=== PATIENT | female | born 1935 | race Caucasian/White ===

== ENCOUNTER → 2017-07-27 | Outpatient (REF) | payer MEDICARE ==
[~2017-07-27] MED LIST: *PREMTA OR; /BENA20TA; /CELE20CA OR; /FEXO18TA; ACET500C PO; ACET65TA; ALAWAY OU; ALLE25CA OR; CALCCHW12 PO; CLOTRIMAZOLE CREAM TOP; DRAMAMINE PO; FLON0.05; HYDR25TA6 OR; LOTREL PO; NORV5TAB; OSTEOBIFLEX PO; POTA99TA OR; PRIL20CA PO; REQU2TAB3 PO; THERGRAN PO; TRAM50TA2; TRAM50TA2 OR
[2017-07-27 13:02] LABS: MEAN CORPUSCULAR HGB CONC 32.6 g/dl (32.0-36.5); MEAN CORPUSCULAR VOLUME 98.2 fl (80.0-96.0); RED CELL DISTRIBUTION WIDTH 12.7 % (11.5-14.5); WHITE BLOOD COUNT 8.2 10^3/uL (4.0-10.0)
[2017-07-27 15:45] LABS: ALBUMIN 3.3 GM/DL (3.2-5.2); ALBUMIN/GLOBULIN RATIO 1.06 (1.00-1.93); BILIRUBIN,TOTAL 0.5 MG/DL (0.2-1.0); CALCIUM LEVEL 8.5 MG/DL (8.8-10.2); CREATININE FOR GFR 1.16 MG/DL (0.55-1.02); FREE T4 1.07 NG/DL (0.76-1.46); GLOMERULAR FILTRATION RATE 47.4 (>32); POTASSIUM SERUM 4.4 MEQ/L (3.5-5.1); TOTAL PROTEIN 6.4 GM/DL (6.4-8.2)
== END ==
LOC: M SFHCLERA 10:01
PROVIDERS: ATTEND Family Medicine
DX: Z00.00 Encounter for general adult medical examination without abnormal findings (principal); I10 Essential (primary) hypertension; M19.90 Unspecified osteoarthritis, unspecified site; Z79.899 Other long term (current) drug therapy

== ENCOUNTER → 2018-01-05 | Outpatient (REF) | payer MEDICARE ==
[2018-01-05 12:23] LABS: ANION GAP 8 MEQ/L (8-16); BLOOD UREA NITROGEN 23 MG/DL (7-18); CARBON DIOXIDE LEVEL 26 MEQ/L (21-32); CHLORIDE LEVEL 105 MEQ/L (98-107); CREATININE FOR GFR 1.18 MG/DL (0.55-1.30); GLOMERULAR FILTRATION RATE 46.5 (>32); GLUCOSE, FASTING 89 MG/DL (70-100); POTASSIUM SERUM 4.7 MEQ/L (3.5-5.1); SODIUM LEVEL 139 MEQ/L (136-145)
== END ==
LOC: M SFHCLERA 09:19
DX: N18.9 Chronic kidney disease, unspecified (principal)
CPT/HCPCS: 80048

== ENCOUNTER 2018-05-25 09:31 | Inpatient (IN) | payer MEDICARE ==
[2018-05-25] MEDS: NS 500 ML IV (10:00)
[2018-05-25] MEDS: ONDANSETRON 4MG/2ML VIAL (J2405) IV ×2 (10:00→10:22)
[2018-05-25 10:05] LABS: BASO % 0.4 % (0.0-1.0); EOS # 0.3 10^3/uL (0.0-0.50); EOS % 4.6 % (0.0-3.0); HEMATOCRIT 38.5 % (36.0-47.0); HEMOGLOBIN 12.8 g/dl (12.0-15.5); IMMATURE GRANULOCYTE % 0.1 % (0-3.0); LYMPH # 2.1 10^3/uL (1.5-4.5); MEAN CORPUSCULAR HEMOGLOBIN 32.2 pg (27.0-33.0); MEAN CORPUSCULAR HGB CONC 33.2 g/dl (32.0-36.5); MONO # 0.9 10^3/uL (0.0-0.8); MONO % 12.6 % (0.0-5.0); NEUTROPHILS # 3.5 10^3/uL (1.8-7.7); NEUTROPHILS % 51.3 % (36.0-66.0); PLATELET COUNT, AUTOMATED 229 10^3/uL (150-450); RED BLOOD COUNT 3.97 10^6/uL (4.00-5.40); RED CELL DISTRIBUTION WIDTH 12.8 % (11.5-14.5); WHITE BLOOD COUNT 6.9 10^3/uL (4.0-10.0)
[2018-05-25 10:28] LABS: ALBUMIN 3.5 GM/DL (3.2-5.2); ALKALINE PHOSPHATASE 77 U/L (45-117); ALT/SGPT 19 U/L (12-78); ANION GAP 9 MEQ/L (8-16); AST/SGOT 34 U/L (7-37); BILIRUBIN,DIRECT 0.2 MG/DL (0.0-0.2); BILIRUBIN,TOTAL 0.6 MG/DL (0.2-1.0); BLOOD UREA NITROGEN 22 MG/DL (7-18); CARBON DIOXIDE LEVEL 27 MEQ/L (21-32); CHLORIDE LEVEL 105 MEQ/L (98-107); CK-MB VALUE MASS 1.7 NG/ML (<3.6); CPK CREATINE PHOSPHOKINASE 96 U/L (26-192); CREATININE FOR GFR 1.38 MG/DL (0.55-1.30); GLOMERULAR FILTRATION RATE 38.7 (>32); GLUCOSE, FASTING 94 MG/DL (70-100); LIPASE 201 U/L (73-393); MB/CK RELATIVE INDEX 1.77 (< OR =4); POTASSIUM SERUM 3.7 MEQ/L (3.5-5.1); SODIUM LEVEL 141 MEQ/L (136-145); TOTAL PROTEIN 7.4 GM/DL (6.4-8.2); TROPONIN I < 0.02 NG/ML (< 0.10)
[2018-05-25 10:51] LABS: INR 0.97
[2018-05-25 10:52] LABS: LACTIC ACID SEPSIS PROTOCOL 1.9 MMOL/L (0.4-2.0)
[2018-05-25] MEDS ORDERED: ISOVUE-370 76% 100ML VIAL (Q9967) As Ordered (11:28)
[2018-05-25] MEDS: fentaNYL 100 MCG/2 ML INJECTION (J3010) IV (12:02)
[2018-05-25] MEDS: ACETAMINOPHEN TAB 650MG DOSE (2X325MG) PO (12:02)
[2018-05-25 12:07] LABS: KETONE, URINE AUTO RFX NEGATIVE (NEGATIVE); NITRITE, URINE AUTO RFX NEGATIVE (NEGATIVE); RBC, URINE AUTO RFX 2 /HPF (0-3); SPECIFIC GRAVITY UR AUTO RFX 1.008 (1.002-1.035); SQUAM EPITHELIAL CELL UR AURFX 1 /HPF (0-6); WBC, URINE AUTO RFX 5 /HPF (0-3)
[2018-05-25 12:13] LABS: LEUKOCYTE ESTERASE UR AUTO RFX 1+ (NEGATIVE)
[2018-05-25] MEDS: NS 1,000 ML IV (15:15)
[2018-05-25] MEDS: GABAPENTIN 100 MG CAP PO ×2 (16:00→20:01)
[2018-05-25] MEDS: MIRALAX *UNIT DOSE* 17GM PACKET PO (19:00)
[2018-05-25] MEDS: traMADol 50 MG TAB PO (20:01)
[2018-05-25] MEDS: cefTRIAXone SOD 1 GM in D5W MINI-BAG PLUS 50 ML IV (20:01)
[2018-05-25] MEDS: HEPARIN SOD (PORCINE) 5000 UNITS/ML VIAL SC (20:01)
[2018-05-25] MEDS: TAMSULOSIN 0.4 MG CAP PO (20:02)
[2018-05-25] MEDS: SENOKOT S TAB PO (20:02)
[2018-05-25] MEDS: rOPINIRole 2MG TAB PO (20:02)
[2018-05-25] MEDS: amLODIPine 5 MG TAB PO (20:06)
[2018-05-25 20:26] LABS: CK-MB VALUE MASS 1.8 NG/ML (<3.6); CPK CREATINE PHOSPHOKINASE 122 U/L (26-192); MB/CK RELATIVE INDEX 1.47 (< OR =4); TROPONIN I < 0.02 NG/ML (< 0.10)
[2018-05-26] MEDS: KETOROLAC TROMETHAMINE 10 MG TAB PO (02:30)
[2018-05-26 06:15] LABS: HEMATOCRIT 36.9 % (36.0-47.0); HEMOGLOBIN 12.1 g/dl (12.0-15.5); MEAN CORPUSCULAR HGB CONC 32.8 g/dl (32.0-36.5); MEAN CORPUSCULAR VOLUME 97.6 fl (80.0-96.0); PLATELET COUNT, AUTOMATED 184 10^3/uL (150-450); RED BLOOD COUNT 3.78 10^6/uL (4.00-5.40); RED CELL DISTRIBUTION WIDTH 12.9 % (11.5-14.5); WHITE BLOOD COUNT 4.8 10^3/uL (4.0-10.0)
[2018-05-26 06:41] LABS: ALBUMIN 3.1 GM/DL (3.2-5.2); ANION GAP 8 MEQ/L (8-16); BLOOD UREA NITROGEN 19 MG/DL (7-18); C REACTIVE PROTEIN QUANTITATIV < 0.30 MG/DL (0.00-0.30); CALCIUM LEVEL 8.8 MG/DL (8.8-10.2); CARBON DIOXIDE LEVEL 27 MEQ/L (21-32); CHLORIDE LEVEL 109 MEQ/L (98-107); CREATININE FOR GFR 1.18 MG/DL (0.55-1.30); GLOMERULAR FILTRATION RATE 46.3 (>32); GLUCOSE, FASTING 101 MG/DL (70-100); PHOSPHORUS LEVEL 4.3 MG/DL (2.5-4.9); POTASSIUM SERUM 4.6 MEQ/L (3.5-5.1); SODIUM LEVEL 144 MEQ/L (136-145)
[2018-05-26] MEDS: MAGNESIUM CITRATE 300 ML BTL PO ×2 (07:07→17:54)
[2018-05-26] MEDS: ONDANSETRON 4MG/2ML VIAL (J2405) IV (07:28)
[2018-05-26] MEDS: MIRALAX *UNIT DOSE* 17GM PACKET PO (09:00)
[2018-05-26] MEDS: ACETAMINOPHEN TAB 650MG DOSE (2X325MG) PO ×2 (09:17→20:25)
[2018-05-26] MEDS: SENOKOT S TAB PO ×2 (09:17→20:25)
[2018-05-26] MEDS: amLODIPine 5 MG TAB PO (09:17)
[2018-05-26] MEDS: HEPARIN SOD (PORCINE) 5000 UNITS/ML VIAL SC ×2 (09:18→20:24)
[2018-05-26] MEDS: GABAPENTIN 100 MG CAP PO ×3 (09:18→20:25)
[2018-05-26] MEDS: MULTIVITAMINS/MINERALS THERAP 1 TAB PO (09:18)
[2018-05-26] MEDS: traMADol 50 MG TAB PO (14:10)
[2018-05-26] MEDS: cefTRIAXone SOD 1 GM in D5W MINI-BAG PLUS 50 ML IV (17:54)
[2018-05-26] MEDS: rOPINIRole 2MG TAB PO (20:24)
[2018-05-26] MEDS: TAMSULOSIN 0.4 MG CAP PO (20:25)
[2018-05-27] MEDS: traMADol 50 MG TAB PO ×3 (05:48→21:47)
[2018-05-27 07:13] LABS: HEMATOCRIT 37.6 % (36.0-47.0); HEMOGLOBIN 12.4 g/dl (12.0-15.5); MEAN CORPUSCULAR VOLUME 96.9 fl (80.0-96.0); PLATELET COUNT, AUTOMATED 179 10^3/uL (150-450); RED BLOOD COUNT 3.88 10^6/uL (4.00-5.40); WHITE BLOOD COUNT 4.9 10^3/uL (4.0-10.0)
[2018-05-27 07:29] LABS: ALBUMIN 3.3 GM/DL (3.2-5.2); ANION GAP 7 MEQ/L (8-16); BLOOD UREA NITROGEN 28 MG/DL (7-18); C REACTIVE PROTEIN QUANTITATIV < 0.30 MG/DL (0.00-0.30); CALCIUM LEVEL 8.6 MG/DL (8.8-10.2); CARBON DIOXIDE LEVEL 30 MEQ/L (21-32); CHLORIDE LEVEL 108 MEQ/L (98-107); CREATININE FOR GFR 1.37 MG/DL (0.55-1.30); GLUCOSE, FASTING 102 MG/DL (70-100); MAGNESIUM LEVEL 3.3 MG/DL (1.8-2.4); PHOSPHORUS LEVEL 3.7 MG/DL (2.5-4.9); POTASSIUM SERUM 4.1 MEQ/L (3.5-5.1); SODIUM LEVEL 145 MEQ/L (136-145)
[2018-05-27] MEDS: amLODIPine 5 MG TAB PO (10:48)
[2018-05-27] MEDS: GABAPENTIN 100 MG CAP PO ×3 (10:48→21:46)
[2018-05-27] MEDS: ACETAMINOPHEN TAB 650MG DOSE (2X325MG) PO (10:51)
[2018-05-27] MEDS: SENOKOT S TAB PO ×2 (10:52→21:00)
[2018-05-27] MEDS: MULTIVITAMINS/MINERALS THERAP 1 TAB PO (10:52)
[2018-05-27] MEDS: MIRALAX *UNIT DOSE* 17GM PACKET PO (10:54)
[2018-05-27] MEDS: HEPARIN SOD (PORCINE) 5000 UNITS/ML VIAL SC ×2 (10:54→21:45)
[2018-05-27] MEDS ORDERED: traMADol 50 MG TAB PO (11:00)
[2018-05-27] MEDS: methylPREDNISolone INJ 125 MG/2 ML VIAL (J2930) IV (14:53)
[2018-05-27] MEDS: cefTRIAXone SOD 1 GM in D5W MINI-BAG PLUS 50 ML IV (17:22)
[2018-05-27] MEDS: rOPINIRole 2MG TAB PO (21:45)
[2018-05-27] MEDS: TAMSULOSIN 0.4 MG CAP PO (21:46)
[2018-05-28] MEDS: GABAPENTIN 100 MG CAP PO ×3 (05:38→21:08)
[2018-05-28] MEDS: traMADol 50 MG TAB PO (05:38)
[2018-05-28 06:35] LABS: HEMATOCRIT 36.4 % (36.0-47.0); HEMOGLOBIN 12.3 g/dl (12.0-15.5); MEAN CORPUSCULAR HEMOGLOBIN 31.8 pg (27.0-33.0); MEAN CORPUSCULAR HGB CONC 33.8 g/dl (32.0-36.5); MEAN CORPUSCULAR VOLUME 94.1 fl (80.0-96.0); PLATELET COUNT, AUTOMATED 187 10^3/uL (150-450); RED BLOOD COUNT 3.87 10^6/uL (4.00-5.40); RED CELL DISTRIBUTION WIDTH 12.5 % (11.5-14.5); WHITE BLOOD COUNT 4.8 10^3/uL (4.0-10.0)
[2018-05-28 06:58] LABS: ALBUMIN 3.1 GM/DL (3.2-5.2); ANION GAP 7 MEQ/L (8-16); BLOOD UREA NITROGEN 29 MG/DL (7-18); C REACTIVE PROTEIN QUANTITATIV < 0.30 MG/DL (0.00-0.30); CALCIUM LEVEL 8.8 MG/DL (8.8-10.2); CARBON DIOXIDE LEVEL 26 MEQ/L (21-32); CHLORIDE LEVEL 109 MEQ/L (98-107); CREATININE FOR GFR 1.03 MG/DL (0.55-1.30); GLOMERULAR FILTRATION RATE 54.2 (>32); GLUCOSE, FASTING 142 MG/DL (70-100); MAGNESIUM LEVEL 2.5 MG/DL (1.8-2.4); PHOSPHORUS LEVEL 3.5 MG/DL (2.5-4.9); POTASSIUM SERUM 4.5 MEQ/L (3.5-5.1); SODIUM LEVEL 142 MEQ/L (136-145)
[2018-05-28] MEDS: MIRALAX *UNIT DOSE* 17GM PACKET PO (08:56)
[2018-05-28] MEDS: amLODIPine 5 MG TAB PO (08:57)
[2018-05-28] MEDS: SENOKOT S TAB PO ×2 (08:57→21:09)
[2018-05-28] MEDS: MULTIVITAMINS/MINERALS THERAP 1 TAB PO (08:57)
[2018-05-28] MEDS: HEPARIN SOD (PORCINE) 5000 UNITS/ML VIAL SC ×2 (08:57→21:09)
[2018-05-28] MEDS: cefTRIAXone SOD 1 GM in D5W MINI-BAG PLUS 50 ML IV (17:18)
[2018-05-28] MEDS: TAMSULOSIN 0.4 MG CAP PO (21:09)
[2018-05-28] MEDS: rOPINIRole 2MG TAB PO (21:09)
[2018-05-29] MEDS: GABAPENTIN 100 MG CAP PO ×2 (06:07→13:03)
[2018-05-29] MEDS: traMADol 50 MG TAB PO ×2 (06:07→13:03)
[2018-05-29 06:48] LABS: HEMATOCRIT 36.6 % (36.0-47.0); HEMOGLOBIN 11.9 g/dl (12.0-15.5); MEAN CORPUSCULAR HEMOGLOBIN 31.6 pg (27.0-33.0); MEAN CORPUSCULAR HGB CONC 32.5 g/dl (32.0-36.5); MEAN CORPUSCULAR VOLUME 97.3 fl (80.0-96.0); PLATELET COUNT, AUTOMATED 179 10^3/uL (150-450); RED BLOOD COUNT 3.76 10^6/uL (4.00-5.40); RED CELL DISTRIBUTION WIDTH 12.9 % (11.5-14.5); WHITE BLOOD COUNT 7.2 10^3/uL (4.0-10.0)
[2018-05-29 07:17] LABS: ANION GAP 6 MEQ/L (8-16); BLOOD UREA NITROGEN 29 MG/DL (7-18); C REACTIVE PROTEIN QUANTITATIV < 0.30 MG/DL (0.00-0.30); CALCIUM LEVEL 8.6 MG/DL (8.8-10.2); CARBON DIOXIDE LEVEL 29 MEQ/L (21-32); CHLORIDE LEVEL 107 MEQ/L (98-107); CREATININE FOR GFR 1.11 MG/DL (0.55-1.30); GLOMERULAR FILTRATION RATE 49.7 (>32); GLUCOSE, FASTING 84 MG/DL (70-100); MAGNESIUM LEVEL 2.3 MG/DL (1.8-2.4); PHOSPHORUS LEVEL 3.8 MG/DL (2.5-4.9); POTASSIUM SERUM 3.9 MEQ/L (3.5-5.1); SODIUM LEVEL 142 MEQ/L (136-145)
[2018-05-29] MEDS: MIRALAX *UNIT DOSE* 17GM PACKET PO (09:34)
[2018-05-29] MEDS: MULTIVITAMINS/MINERALS THERAP 1 TAB PO (09:35)
[2018-05-29] MEDS: amLODIPine 5 MG TAB PO (09:35)
[2018-05-29] MEDS: SENOKOT S TAB PO (09:36)
[2018-05-29] MEDS: HEPARIN SOD (PORCINE) 5000 UNITS/ML VIAL SC (09:37)
== END 2018-05-29 13:10 | disposition home health service (06) | DRG 392 ==
LOC: M ED 09:31 → M ED INP 18:04 → M MS5PR 19:00
DX: K59.00 Constipation, unspecified (principal); I10 Essential (primary) hypertension; M48.00 Spinal stenosis, site unspecified; G25.81 Restless legs syndrome; Z96.651 Presence of right artificial knee joint; Z96.611 Presence of right artificial shoulder joint; Z96.612 Presence of left artificial shoulder joint; Z85.828 Personal history of other malignant neoplasm of skin; Z79.891 Long term (current) use of opiate analgesic; Z79.899 Other long term (current) drug therapy

== ENCOUNTER 2018-10-17 09:48 | Emergency (ER) | payer MEDICARE ==
[~2018-10-17] VITALS: Ht 147.3 cm; Wt 56.8 kg
[~2018-10-17 09:48] MED LIST changes: -/CELE20CA OR; +/CELE20CA PO; +AMLO5TAB4 PO; +FLOM0.4C39 PO; -HYDR25TA6 OR; +HYDR25TA6 PO; +LOTR10CA2 PO; +LOTR52CA PO; +NEO-0.25; +NEUR100C PO; -POTA99TA OR; +POTA99TA PO; -TRAM50TA2 OR; +TRAM50TA2 PO; +VITMTA PO
[2018-10-17] MEDS ORDERED: NS 1,000 ML IV ONE ×2 (10:15)
[2018-10-17] MEDS ORDERED: ONDANSETRON 4MG/2ML VIAL (J2405) IV ONE (10:15)
[2018-10-17 10:33] LABS: BASO % 0.4 % (0.0-1.0); EOS # 0.1 10^3/uL (0.0-0.50); EOS % 1.5 % (0.0-3.0); HEMATOCRIT 39.3 % (36.0-47.0); HEMOGLOBIN 13.4 g/dl (12.0-15.5); LYMPH # 1.1 10^3/uL (1.5-4.5); MEAN CORPUSCULAR HEMOGLOBIN 32.1 pg (27.0-33.0); MEAN CORPUSCULAR HGB CONC 34.1 g/dl (32.0-36.5); MEAN CORPUSCULAR VOLUME 94.2 fl (80.0-96.0); MONO # 0.9 10^3/uL (0.0-0.8); MONO % 19.1 % (0.0-5.0); NEUTROPHILS # 2.6 10^3/uL (1.8-7.7); NEUTROPHILS % 55.6 % (36.0-66.0); PLATELET COUNT, AUTOMATED 206 10^3/uL (150-450); RED BLOOD COUNT 4.17 10^6/uL (4.00-5.40); WHITE BLOOD COUNT 4.7 10^3/uL (4.0-10.0)
[2018-10-17] MEDS ORDERED: ROPI2TAB (10:59)
[2018-10-17 11:08] LABS: ALBUMIN 3.4 GM/DL (3.2-5.2); BILIRUBIN,DIRECT 0.2 MG/DL (0.0-0.2); BILIRUBIN,TOTAL 0.7 MG/DL (0.2-1.0); CALCIUM LEVEL 8.5 MG/DL (8.8-10.2); CREATININE FOR GFR 1.49 MG/DL (0.55-1.30); GLOMERULAR FILTRATION RATE 35.4 (>32); POTASSIUM SERUM 3.9 MEQ/L (3.5-5.1); TOTAL PROTEIN 6.9 GM/DL (6.4-8.2)
[2018-10-17 12:09] LABS: BILIRUBIN, URINE MANUAL NEGATIVE (NEGATIVE); GLUCOSE, URINE (UA) MANUAL NEGATIVE (NEGATIVE); KETONE, URINE MANUAL NEGATIVE (NEGATIVE); UROBILINOGEN, URINE MANUAL NORMAL (NORMAL)
[2018-10-17 12:12] LABS: BACTERIA, URINE LARGE AMOUNT; HYALINE CAST, URINE NONE SEEN /lpf (0-1); SQUAMOUS EPITHELIAL CELL URINE SMALL AMOUNT /hpf (SMALL AMT)
[2018-10-17] MEDS ORDERED: ZOFR4TAB14 PO (12:16)
[2018-10-17 12:27] VITALS: BP 134/60
--- NOTE | 2018-10-17 15:26 | ED PDOC ---
Post-Departure Follow-Up called patient to give her stool culture results. all questions answered. recommend to stay well hydrated, avoid antidiarrheal medications at this time and follow up with primary care physician in 3-5 days or if symptoms worsen. KATELYNN GOODEN PA-C. Oct 17, 2018 15:26
--- NOTE | 2018-10-18 05:45 | ECGEPIP ---
Stationary ECG Study [facility] - ED Test Date: 2018-10-17 Pat Name: ASHISH HANNON Department: Room: - Gender: F Dictating Machine Transcriber: rahul : 1935 Requested By: KATELYNN GOODEN PA-C. Order Number: [id number] Reading MD: Ankur Guzman Measurements Intervals [place] Rate: 59 P: 11 LA: 159 QRS: 5 QRSD: 125 T: -7 QT: 427 QTc: 424 Interpretive Statements SINUS BRADYCARDIA RIGHT BUNDLE BRANCH BLOCK NSTTW ABNORMALITIES SIMILAR TO 05/25/18 Electronically Signed On 10-18-2018 5:45:25 EST by Ankur Guzman
== END 2018-10-17 12:28 | disposition home or self-care (01) ==
LOC: M ED 09:48
DX: E86.0 Dehydration (principal); R11.0 Nausea; R19.7 Diarrhea, unspecified; I10 Essential (primary) hypertension
CPT/HCPCS: 36415; 80048; 80076; 81000; 81015; 82150; 83605; 83690; 85025; 87040; 87077; 87086; 87507; 93005; 96361; 96374; 99284; J2405

== ENCOUNTER 2019-04-06 12:17 | Day surgery (SDC) | payer MEDICARE ==
[~2019-04-06] VITALS: Ht 147.3 cm; Wt 44.5 kg
[~2019-04-06 12:17] MED LIST changes: -/CELE20CA PO; -AMLO5TAB4 PO; +AMLO5TAB6 PO; +BALANCED SALT IRRIGATION SOLUTION 500ML BAG (FOR OR EYE MACHINE) As Ordered ONE; +CEFUROXIME 1MG/0.1ML INTRACAMERAL INJ As Ordered ONE; +CELE1CAP4 PO; +DUOVISC (0.50ML VISCOAT/0.55ML PROVISC) OPHTH KIT As Ordered ONE; +GABA-1171 PO; +HYDR25TAB PO; +LIDOCAINE 0.75%/EPINEPHRINE 0.025% IN BSS 1ML SYR INTRACAMERAL (OR ONLY) As Ordered ONE; +MAGN250T7 PO; +MIDAZOLAM INJ 2 MG/2 ML VIAL (J2250) As Ordered ONE; +MULTCAP PO; -NEO-0.25; +OFLOXACIN 0.3 % (OCUFLOX) OPTH SOL 5ML OS ONE; +PHEN15SP; +PHENYLEPHRINE 2.5% OPHTH SOL 2ML OS ONE; +POVIDONE-IODINE 5% OPHTH PREP SOL 30ML As Ordered ONE; +PRIL20TA2 PO; +PROPARACAINE 0.5% OPHTH SOL 15ML OS ONE; +REQU1TAB14 PO; +ROPI2TAB; +TROPICAMIDE 1% OPHTH SOLN 2ML OS ONE; +ZOFR4TAB14 PO; +fentaNYL 100 MCG/2 ML INJECTION (J3010) As Ordered ONE
[2019-04-06 14:30] VITALS: BP 139/60
--- NOTE | 2019-04-07 07:52 | RO ---
DATE OF PROCEDURE: 04/06/2019 PREOPERATIVE DIAGNOSIS: 1. Visually significant nuclear sclerotic cataract left eye. POSTOPERATIVE DIAGNOSIS: 1. Visually significant nuclear sclerotic cataract left eye. PROCEDURE: 1. Cataract extraction with use of phacoemulsification and placement of intraocular lens, AU00T0, 19.0 D, left eye. SURGEON: Bony Garcia DO CAFETERIA TABLE ATTENDANT: None. ANESTHESIA: Local with monitored anesthesia care (MAC). COMPLICATIONS: None. POSTOPERATIVE CONDITION: Stable. INDICATIONS FOR SURGERY: 1. Blurred vision affecting patients activities of daily living. DESCRIPTION OF PROCEDURE: The patient was seen in the preoperative area and properly identified. The correct operative eye was identified and marked. The patient received topical anesthetic, antibiotics, and topical dilating drops. The patient was then transferred to the operating room. The correct side was re-identified, and a time-out was performed. The eye was prepped and draped in a sterile fashion. The eyelids were isolated with Tegaderm tape, and the lids were held open with an adjustable speculum. A 1.0 mm paracentesis incision was made. Intraocular preservative-free Shugarcaine was then injected into the anterior chamber. Viscoelastic was then injected into the anterior chamber through the paracentesis. Using a 2.4 mm sharp-tipped keratome, the anterior chamber was entered via a temporal clear cornea incision. A continuous curvilinear capsulorrhexis was created with Utrata forceps. Hydrodissection was performed with balanced salt solution (BSS) on a blunt cannula until the nucleus was able to rotate freely. The crystalline lens was phacoemulsified and aspirated. Irrigation/aspiration was used to remove the cortical material. Cohesive viscoelastic was placed into the capsular bag to deepen it. The implant was placed into the capsular bag and allowed to unfold. Placement was confirmed by visualizing the anterior capsulorrhexis. Irrigation/aspiration was used to remove the viscoelastic. The clear corneal incision was hydrated with BSS on a blunt cannula. The lens was well positioned. The incisions were then tested for leaks and found to be negative. The eye was then palpated for appropriate pressure and adjusted accordingly with BSS. The eyelid speculum was then carefully removed. A shield was placed over the eye. The patient tolerated the procedure well and was discharged to the recovery unit in a stable condition.
== END 2019-04-06 14:33 | disposition home or self-care (01) ==
LOC: M SDC 12:17
PROVIDERS: ATTEND Ophthalmology
DX: H25.12 Age-related nuclear cataract, left eye (principal); I10 Essential (primary) hypertension; Z88.8 Allergy status to other drugs, medicaments and biological substances; Z91.040 Latex allergy status; Z79.899 Other long term (current) drug therapy
CPT/HCPCS: 66984; J2250; J3010; V2632

== ENCOUNTER 2019-04-20 12:33 | Day surgery (SDC) | payer MEDICARE ==
[~2019-04-20] VITALS: Ht 147.3 cm; Wt 55.7 kg
[~2019-04-20 12:33] MED LIST changes: -MIDAZOLAM INJ 2 MG/2 ML VIAL (J2250) As Ordered ONE; +OFLOXACIN 0.3 % (OCUFLOX) OPTH SOL 5ML OD ONE; -OFLOXACIN 0.3 % (OCUFLOX) OPTH SOL 5ML OS ONE; +PHENYLEPHRINE 2.5% OPHTH SOL 2ML OD ONE; -PHENYLEPHRINE 2.5% OPHTH SOL 2ML OS ONE; +PROPARACAINE 0.5% OPHTH SOL 15ML OD ONE; -PROPARACAINE 0.5% OPHTH SOL 15ML OS ONE; +TROPICAMIDE 1% OPHTH SOLN 2ML OD ONE; -TROPICAMIDE 1% OPHTH SOLN 2ML OS ONE; -fentaNYL 100 MCG/2 ML INJECTION (J3010) As Ordered ONE
[2019-04-20] MEDS ORDERED: MIDAZOLAM INJ 5 MG/ML VIAL (J2250) As Ordered ONE (13:35)
[2019-04-20] MEDS ORDERED: fentaNYL 100 MCG/2 ML INJECTION (J3010) As Ordered ONE (13:35)
[2019-04-20] MEDS ORDERED: DUOVISC (0.50ML VISCOAT/0.55ML PROVISC) OPHTH KIT As Ordered ONE (13:44)
[2019-04-20 14:35] VITALS: BP 123/68
--- NOTE | 2019-04-21 07:30 | RO ---
PREOPERATIVE DIAGNOSIS: 1. Visually significant nuclear sclerotic cataract right eye. POSTOPERATIVE DIAGNOSIS: 1. Visually significant nuclear sclerotic cataract right eye. PROCEDURE: 1. Cataract extraction with use of phacoemulsification and placement of intraocular lens, A00T0 20.0D, right eye. SURGEON: Bony Garcia DO CLERK OF SCALES: None. ANESTHESIA: Local with monitored anesthesia care (MAC). COMPLICATIONS: None. POSTOPERATIVE CONDITION: Stable. INDICATIONS FOR SURGERY: 1. Blurred vision affecting patients activities of daily living. DESCRIPTION OF PROCEDURE: The patient was seen in the preoperative area and properly identified. The correct operative eye was identified and marked. The patient received topical anesthetic, antibiotics, and topical dilating drops. The patient was then transferred to the operating room. The correct side was re-identified, and a time-out was performed. The eye was prepped and draped in a sterile fashion. The eyelids were isolated with Tegaderm tape, and the lids were held open with an adjustable speculum. A 1.0 mm paracentesis incision was made. Intraocular preservative-free Shugarcaine was then injected into the anterior chamber. Viscoelastic was then injected into the anterior chamber through the paracentesis. Using a 2.4 mm sharp-tipped keratome, the anterior chamber was entered via a temporal clear cornea incision. A continuous curvilinear capsulorrhexis was created with Utrata forceps. Hydrodissection was performed with balanced salt solution (BSS) on a blunt cannula until the nucleus was able to rotate freely. The crystalline lens was phacoemulsified and aspirated. Irrigation/aspiration was used to remove the cortical material. Cohesive viscoelastic was placed into the capsular bag to deepen it. The implant was placed into the capsular bag and allowed to unfold. Placement was confirmed by visualizing the anterior capsulorrhexis. Irrigation/aspiration was used to remove the viscoelastic. The clear corneal incision was hydrated with BSS on a blunt cannula. The lens was well positioned. The incisions were then tested for leaks and found to be negative. The eye was then palpated for appropriate pressure and adjusted accordingly with BSS. The eyelid speculum was then carefully removed. A shield was placed over the eye. The patient tolerated the procedure well and was discharged to the recovery unit in a stable condition.
== END 2019-04-20 14:51 | disposition home or self-care (01) ==
LOC: M SDC 12:33
PROVIDERS: ATTEND Ophthalmology
DX: H25.11 Age-related nuclear cataract, right eye (principal); I10 Essential (primary) hypertension; Z91.040 Latex allergy status; Z88.5 Allergy status to narcotic agent; Z79.899 Other long term (current) drug therapy
CPT/HCPCS: 66984; J2250; J3010; V2632

== ENCOUNTER 2019-06-25 18:24 | Emergency (ER) | payer MEDICARE ==
[~2019-06-25] VITALS: Ht 147.3 cm; Wt 54.5 kg
[~2019-06-25 18:24] MED LIST changes: -BALANCED SALT IRRIGATION SOLUTION 500ML BAG (FOR OR EYE MACHINE) As Ordered ONE; -CEFUROXIME 1MG/0.1ML INTRACAMERAL INJ As Ordered ONE; -DUOVISC (0.50ML VISCOAT/0.55ML PROVISC) OPHTH KIT As Ordered ONE; -LIDOCAINE 0.75%/EPINEPHRINE 0.025% IN BSS 1ML SYR INTRACAMERAL (OR ONLY) As Ordered ONE; -OFLOXACIN 0.3 % (OCUFLOX) OPTH SOL 5ML OD ONE; -PHENYLEPHRINE 2.5% OPHTH SOL 2ML OD ONE; -POVIDONE-IODINE 5% OPHTH PREP SOL 30ML As Ordered ONE; -PROPARACAINE 0.5% OPHTH SOL 15ML OD ONE; -TROPICAMIDE 1% OPHTH SOLN 2ML OD ONE
[2019-06-25] MEDS ORDERED: NITROGLYCERIN 2% OINT 1 GM *U/D* PKT TOP ONE (18:45)
[2019-06-25] MEDS ORDERED: AMLO10CA22 PO (18:48)
[2019-06-25 18:50] LABS: BASO % 0.4 % (0.0-1.0); EOS # 0.3 10^3/uL (0.0-0.5); EOS % 3.6 % (0.0-3.0); HEMOGLOBIN 13.1 g/dl (12.0-15.5); LYMPH # 2.7 10^3/uL (1.5-5.0); LYMPH % 36.5 % (24.0-44.0); MEAN CORPUSCULAR HGB CONC 33.6 g/dl (32.0-36.5); MEAN CORPUSCULAR VOLUME 98.2 fl (80.0-96.0); MONO # 0.9 10^3/uL (0.0-0.8); MONO % 11.8 % (0.0-5.0); NEUTROPHILS # 3.5 10^3/uL (1.5-8.5); NEUTROPHILS % 47.4 % (36.0-66.0); PLATELET COUNT, AUTOMATED 237 10^3/uL (150-450); RED BLOOD COUNT 3.97 10^6/uL (4.00-5.40); WHITE BLOOD COUNT 7.3 10^3/uL (4.0-10.0)
[2019-06-25 19:10] LABS: INR 0.98; PROTHROMBIN TIME 12.7 SECONDS (11.8-14.0)
[2019-06-25 19:11] LABS: PARTIAL THROMBOPLASTIN TIME 28.6 SECONDS (25.0-38.4)
[2019-06-25 19:17] LABS: ALBUMIN 3.7 GM/DL (3.2-5.2); ALT/SGPT 16 U/L (12-78); BILIRUBIN,DIRECT 0.2 MG/DL (0.0-0.2); BILIRUBIN,TOTAL 0.4 MG/DL (0.2-1.0); BLOOD UREA NITROGEN 26 MG/DL (7-18); CALCIUM LEVEL 8.9 MG/DL (8.8-10.2); CARBON DIOXIDE LEVEL 28 MEQ/L (21-32); CHLORIDE LEVEL 106 MEQ/L (98-107); CPK CREATINE PHOSPHOKINASE 100 U/L (26-192); CREATININE FOR GFR 1.38 MG/DL (0.55-1.30); FREE T4 1.12 NG/DL (0.76-1.46); GLOMERULAR FILTRATION RATE 38.6 (>32); GLUCOSE, FASTING 111 MG/DL (70-100); LIPASE 215 U/L (73-393); NT-PRO BNP 220 PG/ML (<450); POTASSIUM SERUM 3.9 MEQ/L (3.5-5.1); SODIUM LEVEL 141 MEQ/L (136-145); TROPONIN I < 0.02 NG/ML (< 0.10)
--- NOTE | 2019-06-25 19:37 | REP ---
Clinical: Acute chest pain . Comparison: 03/07/2015 . Findings: The mediastinum and cardiac silhouette are stable and within normal limits for portable technique. The lung hollins are clear without acute consolidation, effusion, or pneumothorax. Bilateral shoulder prosthesis. The the Impression: No acute cardiopulmonary process appreciated. Electronically Signed by Robert Rodrigez MD 06/25/2019 07:28 P
[2019-06-25 19:39] VITALS: BP 175/74
[2019-06-25] MEDS ORDERED: ISOVUE-370 76% 100ML VIAL (Q9967) As Ordered ONE (20:18)
--- NOTE | 2019-06-25 21:29 | REPVR ---
EXAM: CT Angiography Chest With Contrast EXAM DATE/TIME: 06/25/19 (8:24pm) CLINICAL HISTORY: 84 year old female with SOB, chest pain, and abdominal pain TECHNIQUE: Imaging protocol: Computed tomographic angiography of the chest with intravenous contrast. 3D rendering: MIP reconstructed images were created and reviewed. Radiation optimization: All CT scans at this facility use at least one of these dose optimization techniques: automated exposure control; mA and/or kV adjustment per patient size (includes targeted exams where dose is matched to clinical indication); or iterative reconstruction. Contrast material: Isovue 370 Contrast volume: 100 ml Contrast route: IV COMPARISON: CTA CHEST of 03/07/15 FINDINGS: Pulmonary arteries: Normal. No pulmonary emboli. Aorta: Unremarkable. No aortic aneurysm. No aortic dissection. Lungs: Unremarkable. No consolidation. No masses. Pleural space: Unremarkable. No pneumothorax. No pleural effusions. Heart: Unremarkable. No cardiomegaly. No pericardial effusion. Lymph nodes: Unremarkable. No enlarged lymph nodes. Bones/joints: No acute fracture. Previous bilateral shoulder replacement surgery. Advanced multilevel degenerative thoraco-lumbar disc disease. Soft tissues: Unremarkable. Upper abdomen: Previous cholecystectomy. Large anterior left renal cyst (6-7 cm diameter). IMPRESSION: No acute findings. No focal infiltrates. No filling defects suspicious for pulmonary emboli are seen. There is no CT evidence of aortic dissection nor leakage. No aortic aneurysm is appreciated. Electronically signed by: Opal Garcia On 06/25/2019 21:29:00 PM
--- NOTE | 2019-06-25 21:42 | REPVR ---
EXAM: CT Abdomen and Pelvis With Contrast EXAM DATE/TIME: 06/25/19 (8:24pm) CLINICAL HISTORY: 84 year old female with generalized abdominal pain, SOB, and chest pain TECHNIQUE: Imaging protocol: Computed tomography of the abdomen and pelvis with intravenous contrast. Radiation optimization: All CT scans at this facility use at least one of these dose optimization techniques: automated exposure control; mA and/or kV adjustment per patient size (includes targeted exams where dose is matched to clinical indication); or iterative reconstruction. Contrast material: Isovue 370 Contrast volume: 100 ml Contrast route: IV COMPARISON: CT ABDOMEN PELVIS of 05/25/18 CT ABDOMEN PELVIS of the03/07/15 FINDINGS: Liver: Normal. No solid mass. Gallbladder and bile ducts: Previous cholecystectomy. No ductal dilation. Pancreas: Normal. No ductal dilation. Spleen: Heterogeneous, mottled splenic texture (unchanged appearance). Adrenals: Normal. No mass. Kidneys and ureters: No hydronephrosis. Large anterior left renal cyst (6-7 cm size) (unchaned). Small stable indeterminate hypodense lesion (1 cm size) at the posterolateral margin of the right kidney, midpole level (unchanged appearance from 2017). Stomach and bowel: No bowel obstruction. No mucosal thickening. Colonic diverticulosis changes. Appendix: No evidence of appendicitis. Intraperitoneal space: Normal. No free air. No significant fluid collection. Vasculature: Unremarkable. No abdominal aortic aneurysm. Lymph nodes: Unremarkable. No enlarged lymph nodes. Bladder: Unremarkable as visualized. Reproductive: Unremarkable as visualized. Bones/joints: No acute fracture. Advanced multilevel thoraco-lumbar spine degenerative changes. Soft tissues: Unremarkable. IMPRESSION: No acute findings. Previous cholecystectomy. Mottled splenic texture again seen. Electronically signed by: Opal Garcia On 06/25/2019 21:41:30 PM
[2019-06-25 22:47] LABS: CK-MB VALUE MASS 2.5 NG/ML (<3.6); CPK CREATINE PHOSPHOKINASE 94 U/L (26-192); MB/CK RELATIVE INDEX 2.66 (< OR =4); TROPONIN I < 0.02 NG/ML (< 0.10)
[2019-06-25 23:15] VITALS: BP 152/72
--- NOTE | 2019-06-26 06:39 | ECGEPIP ---
[facility] - ED Test Date: 2019-06-25 Pat Name: ASHISH HANNON Department: Room: - Gender: Female Tour Conductor: KAY : 1935 Requested By: BULMARO Renee Order Number: [id number] Reading MD: Edgar Bhatt Measurements Intervals [place] Rate: 60 P: 27 MO: 174 QRS: -7 QRSD: 127 T: -13 QT: 444 QTc: 446 Interpretive Statements SINUS RHYTHM RIGHT BUNDLE BRANCH BLOCK NONSPECIFIC ST T WAVE CHANGES CW 10/17/[address] T WAVE CHANGES Electronically Signed on 06-26-2019 6:38:49 EDT by Edgar Bhatt
--- NOTE | 2019-06-27 00:34 | ECGEPIP ---
[facility] - ED Test Date: 2019-06-25 Pat Name: ASHISH HANNON Department: Room: - Gender: Female Panel Saw Operator: TC : 1935 Requested By: NITISH Renee Order Number: [id number] Reading MD: Nitish Pappas Measurements Intervals [employer] Rate: 64 P: 44 NE: 168 QRS: -1 QRSD: 126 T: -6 QT: 425 QTc: 441 Interpretive Statements SINUS RHYTHM RIGHT BUNDLE BRANCH BLOCK as previously noted 10-17-[address]-T wave abnormalities Electronically Signed on 06-27-2019 0:33:53 EDT by Nitish Pappas
== END 2019-06-25 23:39 | disposition home or self-care (01) ==
LOC: M ED 18:24 → EDBD 18:24 → M ED 23:39
DX: R07.89 Other chest pain (principal); R06.02 Shortness of breath; I45.10 Unspecified right bundle-branch block; I10 Essential (primary) hypertension; M48.00 Spinal stenosis, site unspecified
CPT/HCPCS: 36415; 71045; 71275; 74177; 80048; 80076; 82550; 82553; 83690; 83880; 84439; 84443; 84484; 85025; 85610; 85730; 93005; 93041; 94760; 99285; Q9967

== ENCOUNTER → 2019-08-02 | Outpatient (REF) | payer MEDICARE ==
[~2019-08-02] MED LIST changes: +AMLO10CA22 PO
[2019-08-03 13:32] LABS: FERRITIN 74 NG/ML (8-252); IRON (FE) 82 UG/DL (50-170)
== END ==
LOC: M LAB REF 12:24
PROVIDERS: ATTEND Nurse Practitioner Adult Health
DX: N18.3 Chronic kidney disease, stage 3 (moderate) (principal); Z79.899 Other long term (current) drug therapy

== ENCOUNTER → 2020-12-04 | Outpatient (REF) | payer MEDICARE ==
[~2020-12-04] MED LIST changes: +AMLO1TAB24 PO; -AMLO5TAB6 PO; +HYDR-3490 PO; -HYDR25TAB PO; -ROPI2TAB; +ROPI2TAB3
[2020-12-04 16:30] LABS: FERRITIN 53 NG/ML (8-252); IRON (FE) 47 UG/DL (50-170)
== END ==
LOC: M LAB REF 15:15
PROVIDERS: ATTEND Nurse Practitioner Adult Health
DX: N18.32 Chronic kidney disease, stage 3b (principal); D50.9 Iron deficiency anemia, unspecified

== ENCOUNTER → 2021-01-01 | Outpatient (REF) | payer MEDICARE | LOC: M LAB REF 12:26 | PROVIDERS: ATTEND Nurse Practitioner Adult Health | DX: N18.9 Chronic kidney disease, unspecified (principal); D63.1 Anemia in chronic kidney disease ==

== ENCOUNTER 2021-07-30 11:33 | Observation (INO) | payer MEDICARE ==
[~2021-07-30] VITALS: Ht 147.3 cm; Wt 56.8 kg
[2021-07-30] MEDS ORDERED: ROPI2TAB24 (11:54)
[2021-07-30] MEDS ORDERED: CELE1CAP7 PO (11:54)
[2021-07-30 14:32] LABS: RSV AMPLIFICATION NEGATIVE (NEGATIVE)
--- NOTE | 2021-07-30 15:07 | REP ---
INDICATION: Coronavirus workup COMPARISON: 06/25/2019 TECHNIQUE: Portable AP view of the chest FINDINGS: The mediastinum and cardiac silhouette are stable and within normal limits for portable technique. The lung hollins are clear without acute consolidation, effusion, or pneumothorax. Skeletal structures are intact. IMPRESSION: No acute cardiopulmonary process appreciated. <Electronically signed by Robert Rodrigez > 07/30/21 [id number]
[2021-07-30 15:39] LABS: BASO % 0.6 % (0.0-1.0); EOS # 0.3 10^3/uL (0.0-0.5); EOS % 4.6 % (0.0-3.0); HEMATOCRIT 44.7 % (36.0-47.0); HEMOGLOBIN 14.8 g/dl (12.0-15.5); LYMPH # 1.9 10^3/uL (1.5-5.0); MEAN CORPUSCULAR HEMOGLOBIN 31.9 pg (27.0-33.0); MEAN CORPUSCULAR HGB CONC 33.1 g/dl (32.0-36.5); MEAN CORPUSCULAR VOLUME 96.3 fl (80.0-96.0); MONO # 1.1 10^3/uL (0.0-0.8); MONO % 16.3 % (2.0-8.0); NEUTROPHILS # 3.3 10^3/uL (1.5-8.5); NEUTROPHILS % 49.2 % (36.0-66.0); PLATELET COUNT, AUTOMATED 231 10^3/uL (150-450); RED BLOOD COUNT 4.64 10^6/uL (4.00-5.40); WHITE BLOOD COUNT 6.7 10^3/uL (4.0-10.0)
[2021-07-30 15:52] LABS: D-DIMER QUANT 1381.86 ng/ml (<500)
[2021-07-30 16:19] LABS: ALBUMIN 3.8 GM/DL (3.2-5.2); ALT/SGPT 22 U/L (12-78); BILIRUBIN,TOTAL 0.7 MG/DL (0.2-1.0); BLOOD UREA NITROGEN 22 MG/DL (7-18); CALCIUM LEVEL 9.9 MG/DL (8.8-10.2); CARBON DIOXIDE LEVEL 30 MEQ/L (21-32); CHLORIDE LEVEL 106 MEQ/L (98-107); CK-MB VALUE MASS < 1.0 NG/ML (<3.6); CPK CREATINE PHOSPHOKINASE 67 U/L (26-192); CREATININE FOR GFR 1.24 MG/DL (0.55-1.30); FREE T4 1.16 NG/DL (0.76-1.46); GLOMERULAR FILTRATION RATE 43.5 (>32); GLUCOSE, FASTING 95 MG/DL (70-100); LDH LACTATE DEHYDROGENASE 197 U/L (84-246); MB/CK RELATIVE INDEX 1.49 (< OR =4); NT-PRO BNP 184 PG/ML (<450); POTASSIUM SERUM 4.6 MEQ/L (3.5-5.1); SODIUM LEVEL 139 MEQ/L (136-145); TOTAL PROTEIN 7.9 GM/DL (6.4-8.2); TROPONIN I < 0.02 NG/ML (< 0.10)
[2021-07-30] MEDS ORDERED: ISOVUE-370 76% 100ML VIAL As Ordered ONE (16:44)
--- NOTE | 2021-07-30 17:31 | REPVR ---
PROCEDURE INFORMATION: Exam: CTA Chest With Contrast Exam date and time: 07/30/2021 5:05 PM Age: 86 years old Clinical indication: Pain; Chest pressure; Additional info: R/O pe, SOB, elevated dimer TECHNIQUE: Imaging protocol: Computed tomographic angiography of the chest with contrast. 3D rendering (Not supervised by radiologist): MIP and/or 3D reconstructed images were created by the technologist. Radiation optimization: All CT scans at this facility use at least one of these dose optimization techniques: automated exposure control; mA and/or kV adjustment per patient size (includes targeted exams where dose is matched to clinical indication); or iterative reconstruction. Contrast material: ISO 370; Contrast volume: 75 ml; Contrast route: INTRAVENOUS (IV); COMPARISON: CT ANGIO CHEST 06/25/2019 8:23 PM FINDINGS: Pulmonary arteries: Normal. No pulmonary emboli. Aorta: atherosclerotic calcification of the abdominal aorta and the splenic artery. 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 Lungs: Unremarkable. No consolidation. No masses. Pleural spaces: Unremarkable. No pneumothorax. No pleural effusion. Heart: Unremarkable. No cardiomegaly. No pericardial effusion. Lymph nodes: Unremarkable. No enlarged lymph nodes. Kidneys and ureters: Cyst at the upper pole of the left kidney measuring 7.4 cm. Bones/joints: Degenerative changes of the spine. Soft tissues: Unremarkable. IMPRESSION: 1. No pulmonary embolism. 2. 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 COMMENTS: Consistent with the [employer]'s Incidental Findings Committee white paper (J Am Tracie Radiol 2018): Any incidental renal lesion less than 1 cm or classified as too small to characterize, or any incidental cystic renal lesion characterized as simple-appearing, is likely benign. No follow-up imaging is recommended for these lesions per consensus recommendations based on imaging criteria. Electronically signed by: Darrius Thompson On 07/30/2021 17:30:33 PM
[2021-07-30] MEDS ORDERED: ROPI2TAB3 PO (18:39)
[2021-07-30] MEDS ORDERED: HOME MED LIST COMPLETE! XX SCH (18:40)
[2021-07-30 18:49] LABS: INR 0.9; PROTHROMBIN TIME 12.6 SECONDS (12.7-14.5)
[2021-07-30 18:50] LABS: PARTIAL THROMBOPLASTIN TIME 29.1 SECONDS (25.9-37.0)
--- NOTE | 2021-07-30 18:55 | REP ---
INDICATION: r/o dvt, elevated dimer. COMPARISON: None. TECHNIQUE: Multiple ultrasonographic images of the deep venous structures of the bilateral lower extremity were obtained from the inguinal ligament to the ankle. Venous compression techniques, color doppler imaging, and augmentation techniques were also obtained where appropriate. As per the ACR guidelines the anterior tibial vein can not be effectively evaluated. Only compression techniques in the calf on the peroneal and posterior tibial veins was attempted/performed. FINDINGS: There is no abnormal echogenic material seen within any of the visualized deep venous structures that would suggest acute thrombosis. Coaptation is unremarkable throughout. Doppler interrogation shows an expected response to respiratory variability and augmentation in the thigh. Compression techniques in the calf were unobtainable. The color flow images show what appears to be a normal vascular pattern throughout the thigh. IMPRESSION: There is no ultrasonographic evidence of deep venous thrombosis involving any of the visualized deep venous structures of the bilateral lower extremity as described above. Due to technical parameters calf vein DVT can not be ruled out. <Electronically signed by Robert Guillen > 07/30/21 [id number]
--- NOTE | 2021-07-30 20:21 | IPNPDOC ---
Text Note Date of Service The patient was seen on 07/30/21. VS,Radha, I+O VS, Radha, I+O Laboratory Tests 07/30/21 15:17 Vital Signs Date Time Temp Pulse Resp B/P (MAP) Pulse Ox O2 Delivery O2 Flow Rate FiO2 07/30/21 17:50 98.6 63 16 165/72 (103) 96 Room Air RAJINDER MILLER MD Jul 30, 2021 20:21
[2021-07-30] MEDS ORDERED: MAALOX 30 ML SUSP *UDC PO PRN (20:45)
[2021-07-30] MEDS ORDERED: traMADol 50 MG TAB PO PRN (20:45)
[2021-07-30] MEDS ORDERED: ACETAMINOPHEN TAB 650MG DOSE (2X325MG) PO PRN (20:45)
[2021-07-30] MEDS ORDERED: MOM 30ML SUSPENSION UDC PO PRN (20:45)
[2021-07-30] MEDS ORDERED: CLOPIDOGREL 75 MG TAB PO SCH (21:00)
[2021-07-30] MEDS ORDERED: rOPINIRole 1MG TAB PO SCH (21:00)
[2021-07-30] MEDS ORDERED: ATORVASTATIN 20 MG TAB PO SCH (21:00)
[2021-07-30] MEDS ORDERED: ASPIRIN 81MG ENTERIC TABLET PO SCH (21:00)
[2021-07-30] MEDS: GABAPENTIN 100 MG CAP PO SCH (21:59)
[2021-07-30 22:00] VITALS: BP 142/83
--- NOTE | 2021-07-30 22:20 | HPEPDOC ---
[facility] Medical History & Physical Date of Admission Jul 30, 2021 Date of Service: Jul 30, 2021 Primary Care Physician: Lidia Benavides Attending Physician: RAJINDER MILLER MD History and Physical CHIEF COMPLAINT: Generalized fatigue HISTORY OF PRESENT ILLNESS: Saida is a pleasant 86yo female w/ notable PMHx of hypertension, spinal stenosis, arthritis, recurrent sinus infection, and vertigo who presented to the [facility] ED on 07/30/2021 complaining of 2-3 days of malaise. She has associated cough productive of yellow sputum, shortness of breath with moderate or significant exertion. After feeling rundown for a couple days, the patient's son who lives with her advised she go to the emergency department for evaluation. She denies any associated fever, chills, night sweats, unintention al change in weight, pleuritic chest pain, dyspnea at rest, hemoptysis, chest pain, chest pressure, palpitations, abdominal pain/nausea/vomiting/diarrhea/blood in stool, dysuria, or hematuria. In the ED she was found to have rhinovirus an elevated D-dimer of 1381. Chest x-ray showed no acute cardiopulmonary process. A CTA showed a nonocclusive thrombus in the splenic artery but no signs of active pulmonary embolism. And a bilateral lower extremity ultrasound was negative for DVT. Patient was afebrile, not tachypneic, and not hypoxic. After thrombus was found incidentally on CTA, ED provider called the on-call general surgeon (Dr. Kurtz), who advised discussing the case with vascular surgery (Dr. Sutton). Dr. Sutton advised the patient get a hypercoagulable work-up ordered and be started on aspirin, Plavix and a statin medication with outpatient vascular follow-up. 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 She currently lives with one of her sons. She does have a aide/special events assistant who visits her regularly but is relatively independent of all activities of daily living. FAMILY HISTORY: Reviewed and noncontributory ALLERGIES: Please see below. REVIEW OF SYSTEMS: 10 point review of systems complete, otherwise negative in HPI HOME MEDICATIONS: Please see below. PHYSICAL EXAMINATION: VITAL SIGNS: Temperature 98.6, pulse 63, respiratory rate 16, blood pressure 165/72, pulse oximetry 96% on room air. GENERAL APPEARANCE: Very pleasant elderly female lying upright in ED bed. She appears mildly restless and somewhat anxious but is in otherwise no acute distress. HEENT: Normocephalic, atraumatic. Noninjected, anicteric sclera. Wearing eyeglasses. CARDIOVASCULAR: Borderline bradycardic rate, regular rhythm. Normal S1, S2. Possible faint 1/6 systolic murmur appreciated best at the right parasternal s econd intercostal space. No rubs appreciated. LUNGS: Good respiratory effort with symmetric chest expansion. No significant adventitious breath sounds are appreciated. Breathing room air and speaking full sentences. ABDOMEN: There are well-healed vertical scars both superior and inferior to the umbilicus. Soft, nondistended and nontender. No guarding or rigidity appreciated. Normoactive bowel sounds throughout. EXTREMITIES: Bilateral lower extremities are free of pitting edema. There are palpable varicose veins in the posterior aspect of each leg. 2+ radial pulses bilaterally. There are arthritic changes visible bilateral hands which include the DIP joints. NEUROLOGICAL: No gross focal neurologic deficits appreciated. Nondysarthric speech. PSYCHIATRIC: Somewhat anxious and worrisome mood at times but otherwise pleasant. Affect appears appropriate. LABORATORY DATA: IMAGING: Portable chest x-ray, 07/30/2021 FINDINGS: The mediastinum and cardiac silhouette are stable and within normal limits for portable technique. The lung hlolins are clear without acute consolidation, effusion, or pneumothorax. Skeletal structures are intact. IMPRESSION: No acute cardiopulmonary process appreciated. CT angiography of the chest with contrast, 07/30/2021 FINDINGS: Pulmonary arteries: Normal. No pulmonary emboli. Aorta: atherosclerotic calcification of the abdominal aorta and the splenic artery. 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 Lungs: Unremarkable. No consolidation. No masses. Pleural spaces: Unremarkable. No pneumothorax. No pleural effusion. Heart: Unremarkable. No cardiomegaly. No pericardial effusion. Lymph nodes: Unremarkable. No enlarged lymph nodes. Kidneys and ureters: Cyst at the upper pole of the left kidney measuring 7.4 cm. Bones/joints: Degenerative changes of the spine. Soft tissues: Unremarkable. IMPRESSION: 1. No pulmonary embolism. 2. 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 Duplex lower extremity bilateral venous ultrasound, 07/30/2021- FINDINGS: There is no abnormal echogenic material seen within any of the visualized deep venous structures that would suggest acute thrombosis. Coaptation is unremarkable throughout. Doppler interrogation shows an expected response to respiratory variability and augmentation in the thigh. Compression techniques in the calf were unobtainable. The color flow images show what appears to be a normal vascular pattern throughout the thigh. IMPRESSION: There is no ultrasonographic evidence of deep venous thrombosis involving any of the visualized deep venous structures of the bilateral lower extremity as described above. Due to technical parameters calf vein DVT can not be ruled out. MICROBIOLOGY: + rhinovirus / neg COVID ASSESSMENT & PLAN: This is an 86-year-old female with notable history of hypertension, spinal stenosis, arthritis, recurrent sinus infections, and vertigo who presented to the ED on 07/30 complaining of 2 to 3 days of generalized malaise with productive cough of yellow sputum and shortness of breath with moderate to significant exertion. She was found to be positive for the rhinovirus and had an elevated D-dimer (1381). Imaging work-up for venous thromboembolism was negative, but a nonocclusive thrombus was found incidentally in the splenic artery. Patient was admitted for observation with likely discharge on 07/31. #Splenic artery nonocclusive thrombus, chronic -More likely result of atherosclerosis versus coagulopathic process -This was found incidentally on CTA chest during work-up for possible venous thromboembolism in the setting of elevated D-dimer -The admitting hospitalist service spoke with the on-call vascular surgeon (Dr. Sutton), who initially advised starting aspirin, clopidogrel, and statin medication. Dr. Sutton spoke to the ED prior to admission and recommended hypercoagulable work-up be ordered. Due to the fact this was a nonocclusive thrombus, and taken to account patient's age, anticoagulation was initially deferred. -Upon further review, Dr. Sutton found a CT abdomen/pelvis study from 2019 that also showed a nonocclusive splenic artery thrombus in the same position as today's study -As a result, due to the patient's age and increased bleeding risk, clopidogrel was discontinued; continue with plan for baby aspirin and statin -Initial plan was for patient to follow-up with vascular as outpatient, but after identifying this was a chronic nonocclusive thrombus, feeling is it is more likely the result of atherosclerosis than coagulopathic process #Generalized malaise likely secondary to rhinovirus -Patient complaining of 2 to 3 days of fatigue with productive cough of yellow sputum, and shortness of breath with moderate to significant exertion. -She was afebrile in the ED with no leukocytosis and was not hypoxic. -Respiratory viral panel positive for rhinovirus #Elevated D-dimer -D-dimer was 1381 in the ED. -Imaging work-up for venous thromboembolism was unremarkable #Hypertension Patient's home antihypertensive medications (hydrochlorothiazide, amlodipine, a nd benazepril) were continued -Of note, hospital formulary does not have combined benazepril/amlodipine medication the patient takes as outpatient; equivalent doses of individual amlodipine and benazepril were ordered -2 g sodium diet #Arthritis -Home celecoxib and tramadol continued #Presumed history of restless leg syndrome -Home ropinirole continued #Presumed history of neuropathy -Home gabapentin continued #Chronic kidney disease stage IIIb Calculated GFR was 43% upon admission. -Review of past records show CKD 3 dating back to 2009 #DVT prophylaxis: Subcutaneous heparin CODE STATUS: Full code Disposition: Admitted with observation status and likely discharge tomorrow on 07/31 pending stability. Initial plan was for outpatient follow-up with vascular surgery and to assess results of hypercoagulable work-up, but due to the fact that splenic artery nonocclusive thrombus is a chronic process, outpatient follow-up is not warranted. Patient's PCP can decide on outpatient follow-up whether or not to continue with baby aspirin and statin medication in the se tting of likely atherosclerotic cause of chronic nonocclusive thrombus. Home Medications Scheduled Amlodipine Besylate/Benazepril (Amlodipine-Benazepril 10-40 mg) 1 Each Capsule, 1 CAP PO DAILY Celecoxib (Celecoxib) 100 Mg Capsule, 100 MG PO DAILY Gabapentin (Gabapentin) 100 Mg Capsule, 100 MG PO TID Hydrochlorothiazide (Hydrochlorothiazide) 25 Mg Tablet, 25 MG PO DAILY Magnesium Oxide (Magnesium) 250 Mg Tablet, 1 MG PO DAILY Ropinirole HCl (Ropinirole HCl) 2 Mg Tablet, 2 MG PO QHS Scheduled PRN Tramadol HCl (Tramadol HCl) 50 Mg Tablet, 50 MG PO TID PRN for PAIN Allergies Coded Allergies: latex (Verified Allergy, Intermediate, rash, 03/30/19) morphine (Verified Adverse Reaction, Intermediate, profound vomiting, 03/30/19) GME ATTESTATION GME ATTESTATION My faculty preceptor for this patient encounter was physically present during the encounter and was fully available. All aspects of the patient interview, examination, medical decision making process, and medical care plan development were reviewed and approved by the faculty preceptor. The faculty preceptor is aware and concurs with the plan as stated in the body of this note and will attest to such by his/her cosignature. ATTENDING NOTE Time of service 750pm Ms Eng is an 86 yr old F who presented w URI symptoms and was found to have rhinovirus infection a non-occlusive splenic vein thrombus; she will be admitted for observation overnight and likely discharged in the morning. Rest per Dr.Schwarzs Maguire&P BETTY LOONEY D.O. Jul 30, 2021 22:20 RAJINDER MILLER MD Jul 31, 2021 02:52
[2021-07-31 06:00] VITALS: BP 141/65
[2021-07-31] MEDS ORDERED: HEPARIN SOD (PORCINE) 5000UNITS/ML 1ML VIAL/SYRINGE SC SCH (06:00)
[2021-07-31 07:14] LABS: HEMATOCRIT 40.7 % (36.0-47.0); HEMOGLOBIN 13.7 g/dl (12.0-15.5); MEAN CORPUSCULAR HEMOGLOBIN 32.5 pg (27.0-33.0); MEAN CORPUSCULAR HGB CONC 33.7 g/dl (32.0-36.5); MEAN CORPUSCULAR VOLUME 96.7 fl (80.0-96.0); PLATELET COUNT, AUTOMATED 213 10^3/uL (150-450); RED BLOOD COUNT 4.21 10^6/uL (4.00-5.40); WHITE BLOOD COUNT 5.7 10^3/uL (4.0-10.0)
[2021-07-31 07:51] LABS: ALBUMIN 3.2 GM/DL (3.2-5.2); BILIRUBIN,TOTAL 0.6 MG/DL (0.2-1.0); CALCIUM LEVEL 9.4 MG/DL (8.8-10.2); CREATININE FOR GFR 1.27 MG/DL (0.55-1.30); GLOMERULAR FILTRATION RATE 42.3 (>32); MAGNESIUM LEVEL 2.4 MG/DL (1.8-2.4); POTASSIUM SERUM 4.6 MEQ/L (3.5-5.1)
[2021-07-31] MEDS ORDERED: BENAZEPRIL 20 MG TAB PO SCH (09:00)
[2021-07-31] MEDS ORDERED: CelecoXIB (CeleBREX) 100 MG CAP PO SCH (09:00)
[2021-07-31 09:17] VITALS: BP 120/68
[2021-07-31] MEDS: GABAPENTIN 100 MG CAP PO SCH (09:17)
[2021-07-31] MEDS: FLUBLOK(EGG FREE)(QUAD)INFLUENZA VACC 0.5ML SYRINGE 18YRS & OLDER IM ONE ×2 (09:20→09:21)
[2021-07-31] MEDS ORDERED: ATOR1TAB21 PO (09:29)
[2021-07-31] MEDS ORDERED: ASPI-551 PO (09:29)
--- NOTE | 2021-07-31 11:09 | DS.PDOC ---
Discharge Summary General Date of Admission Jul 30, 2021 at 11:34 Date of Discharge Jul 31, 2021 Discharge Summary PROCEDURES PERFORMED DURING STAY: None ADMITTING DIAGNOSES: 1.Splenic artery non-occlusive thrombus, chronic 2.Generalized malaise likely 2/2 rhinovirus 3.Hypertension 4.Arthritis 5. CKD stage IIIb 6.Spinal stenosis 7.Presumed restless leg syndrome 8.Presumed neuropathy DISCHARGE DIAGNOSES: 1.Splenic artery non-occlusive thrombus, chronic 2.Generalized malaise likely 2/2 rhinovirus 3.Hypertension 4.Arthritis 5.CKD stage IIIb 6.Spinal stenosis 7.Presumed restless leg syndrome 8.Presumed neuropathy COMPLICATIONS/CHIEF COMPLAINT: Generalized fatigue HISTORY OF PRESENT ILLNESS: Saida is a pleasant 86yo female w/ notable PMHx of hypertension, spinal stenosis, arthritis, recurrent sinus infection, and vertigo who presented to the [facility] ED on 07/30/2021 complaining of 2-3 days of malaise. She has associated cough productive of yellow sputum, shortness of breath with moderate or signi ficant exertion. After feeling rundown for a couple days, the patient's son who lives with her advised she go to the emergency department for evaluation. She denies any associated fever, chills, night sweats, unintentional change in weight, pleuritic chest pain, dyspnea at rest, hemoptysis, chest pain, chest pressure, palpitations, abdominal pain/nausea/vomiting/diarrhea/blood in stool, dysuria, or hematuria. In the ED she was found to have rhinovirus an elevated D-dimer of 1381. Chest x-ray showed no acute cardiopulmonary process. A CTA showed a nonocclusive thrombus in the splenic artery but no signs of active pulmonary embolism. And a bilateral lower extremity ultrasound was negative for DVT. Patient was afebrile, not tachypneic, and not hypoxic. After thrombus was found inciden tally on CTA, ED provider called the on-call general surgeon (Dr. Kurtz), who advised discussing the case with vascular surgery (Dr. Sutton). Dr. Sutton advised the patient get a hypercoagulable work-up ordered and be started on aspirin, Plavix and a statin medication with outpatient vascular follow-up. HOSPITAL COURSE: #Splenic artery nonocclusive thrombus, chronic -More likely result of atherosclerosis versus coagulopathic process -This was found incidentally on CTA chest during work-up for possible venous thromboembolism in the setting of elevated D-dimer -The admitting hospitalist service spoke with the on-call vascular surgeon (Dr. Sutton), who initially advised starting aspirin, clopidogrel, and statin medication. Dr. Sutton spoke to the ED prior to admission and recommended hypercoagulable work-up be ordered. Due to the fact this was a nonocclusive thrombus, and taken to account patient's age, anticoagulation was initially deferred. -Upon further review, Dr. Sutton found a CT abdomen/pelvis study from 2019 that also showed a nonocclusive splenic artery thrombus in the same position as today's study -As a result, due to the patient's age and increased bleeding risk, clopidogrel was discontinued; continue with plan for baby aspirin and statin -Initial plan was for patient to follow-up with vascular as outpatient, but after identifying this was a chronic nonocclusive thrombus, feeling is it is more likely the result of atherosclerosis than coagulopathic process #Generalized malaise likely secondary to rhinovirus -Patient complaining of 2 to 3 days of fatigue with productive cough of yellow sputum, and shortness of breath with moderate to significant exertion. -She was afebrile in the ED with no leukocytosis and was not hypoxic. -Respiratory viral panel positive for rhinovirus #Elevated D-dimer -D-dimer was 1381 in the ED. -Imaging work-up for venous thromboembolism was unremarkable #Hypertension Patient's home antihypertensive medications (hydrochlorothiazide, amlodipine, and benazepril) were continued -Of note, hospital formulary does not have combined benazepril/amlodipine medication the patient takes as outpatient; equivalent doses of individual amlodipine and benazepril were ordered -2 g sodium diet - c/w home med regimen. #Arthritis -c/w home celecoxib and tramadol #Presumed history of restless leg syndrome -c/w home ropinirole #Presumed history of neuropathy -c/w home gabapentin #Chronic kidney disease stage IIIb Calculated GFR was 43% upon admission -Review of past records show CKD 3 dating back to 2009 DISCHARGE MEDICATIONS: Please see below. ALLERGIES: Please see below. PHYSICAL EXAMINATION ON DISCHARGE: VITAL SIGNS: Please see below. GENERAL: Patient appears stated age, is sitting comfortably in bed, awake and alert, NAD HEENT: NC/AT, PERRLA, EOMI, MMM NECK: No obvious lymphadenopathy CARDIOVASCULAR EXAMINATION: Regular rate, soft 1/6 systolic murmur, no obvious rubs or gallops. Cap refill <2s, rad pulses 2+ bilaterally RESPIRATORY EXAMINATION: Mild crackles in bilateral bases of lungs ABDOMINAL EXAMINATION: Soft and non-tender to palpation, BS present and normoactive EXTREMITIES: No obvious edema, PTAs and DPAs present bilaterally, 5/5 strength in all 4 extremities NEUROLOGICAL EXAMINATION: CN II-XII grossly intact PSYCHIATRIC EXAMINATION: Patient is pleasant and has an appropriate mood and affect LABORATORY DATA: Please see below. IMAGING: Portable chest x-ray, 07/30/2021 FINDINGS: The mediastinum and cardiac silhouette are stable and within normal limits for portable technique. The lung hollins are clear without acute consolidation, effusion, or pneumothorax. Skeletal structures are intact. IMPRESSION: No acute cardiopulmonary process appreciated. CT angiography of the chest with contrast, 07/30/2021 FINDINGS: Pulmonary arteries: Normal. No pulmonary emboli. Aorta: atherosclerotic calcification of the abdominal aorta and the splenic artery. 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 Lungs: Unremarkable. No consolidation. No masses. Pleural spaces: Unremarkable. No pneumothorax. No pleural effusion. Heart: Unremarkable. No cardiomegaly. No pericardial effusion. Lymph nodes: Unremarkable. No enlarged lymph nodes. Kidneys and ureters: Cyst at the upper pole of the left kidney measuring 7.4 cm. Bones/joints: Degenerative changes of the spine. Soft tissues: Unremarkable. IMPRESSION: 1. No pulmonary embolism. 2. 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 Duplex lower extremity bilateral venous ultrasound, 07/30/2021- FINDINGS: There is no abnormal echogenic material seen within any of the visualized deep venous structures that would suggest acute thrombosis. Coaptation is unremarkable throughout. Doppler interrogation shows an expected response to respiratory variability and augmentation in the thigh. Compression techniques in the calf were unobtainable. The color flow images show what appears to be a normal vascular pattern throughout the thigh. IMPRESSION: There is no ultrasonographic evidence of deep venous thrombosis involving any of the visualized deep venous structures of the bilateral lower extremity as described above. Due to technical parameters calf vein DVT can not be ruled out. PROGNOSIS: Good ACTIVITY: As tolerated DIET: As tolerated DISCHARGE PLAN: Discharge to home DISCHARGE INSTRUCTIONS: 1.Rest and get plenty of fluids, treat viral symptoms with over the counter medications as tolerated prn 2.Please be compliant with your medications 3.Please follow up with your PCP within 7 days 4.Please return to the nearest ER if your symptoms should reappear or worsen 5.Thank you for the opportunity to participate in your care DISCHARGE CONDITION: Stable TIME SPENT ON DISCHARGE: >35 minutes Vital Signs/I&Os Vital Signs Date Time Temp Pulse Resp B/P (MAP) Pulse Ox O2 Delivery O2 Flow Rate FiO2 07/31/21 09:18 62 07/31/21 09:17 120/68 07/31/21 06:30 20 07/31/21 06:00 97.4 97 07/30/21 17:50 Room Air I&O- Last 24 Hours up to 6 AM 07/31/21 06:00 Intake Total 300 ml Balance 300 ml Laboratory Data Labs 24H Laboratory Tests 2 07/30/21 13:20: Coronavirus (COVID-19)(PCR) NEGATIVE, Influenza Type A (RT-PCR) NEGATIVE, Influenza Type B (RT-PCR) NEGATIVE, Respiratory Syncytial Virus (PCR) NEGATIVE 07/30/21 15:17: Immature Granulocyte % (Auto) 0.3, Neutrophils (%) (Auto) 49.2, Lymphocytes (%) (Auto) 29.0, Monocytes (%) (Auto) 16.3H, Eosinophils (%) (Auto) 4.6H, Basophils (%) (Auto) 0.6, Neutrophils # (Auto) 3.3, Lymphocytes # (Auto) 1.9, Monocytes # (Auto) 1.1H, Eosinophils # (Auto) 0.3, Basophils # (Auto) 0.0, Nucleated Red Blood Cells % (auto) 0.0, Prothrombin Time 12.6, Prothromb Time International Ratio 0.90, Activated Partial Thromboplast Time 29.1, D-Dimer, Quantitative 1381.86H, Anion Gap 3L, Glomerular Filtration Rate 43.5, Calcium Level 9.9, Total Bilirubin 0.7, Aspartate Amino Transf (AST/SGOT) 45H, Alanine Aminotransferase (ALT/SGPT) 22, Alkaline Phosphatase 84, Lactate Dehydrogenase 197, Total Creatine Kinase 67, Creatine Kinase MB < 1.0, Creatine Kinase MB Relative Index 1.49, Troponin I < 0.02, C-Reactive Protein, Quantitative 0.30, [id number]-Type Natriuretic Peptide 184, Total Protein 7.9, Albumin 3.8, Albumin/Globulin Ratio 0.9L, Thyroid Stimulating Hormone (TSH) 2.370, Free Thyroxine 1.16 07/30/21 18:43: 07/31/21 07:01: Nucleated Red Blood Cells % (auto) 0.0, Anion Gap 4L, Glomerular Filtration Rate 42.3, Calcium Level 9.4, Total Bilirubin 0.6, Aspartate Amino Transf (AST/SGOT) 37, Alanine Aminotransferase (ALT/SGPT) 19, Alkaline Phosphatase 77, Total Protein 7.0, Albumin 3.2, Albumin/Globulin Ratio 0.8L, Magnesium Level 2.4 CBC/BMP Laboratory Tests 07/30/21 15:17 07/31/21 07:01 Microbiology Microbiology 07/30/21 Respiratory Virus Panel (PCR) ([facility]) - Final, Complete Human Rhinovirus/Enterovirus Discharge Medications Scheduled Amlodipine Besylate/Benazepril (Amlodipine-Benazepril 10-40 mg) 1 Each Capsule, 1 CAP PO DAILY, (Reported) Aspirin (Aspirin EC) 81 Mg Tablet.dr, 81 MG PO DAILY@2100 Atorvastatin Calcium (Atorvastatin Calcium) 20 Mg Tablet, 20 MG PO DAILY@2100 Celecoxib (Celecoxib) 100 Mg Capsule, 100 MG PO DAILY, (Reported) Gabapentin (Gabapentin) 100 Mg Capsule, 100 MG PO TID, (Reported) Hydrochlorothiazide (Hydrochlorothiazide) 25 Mg Tablet, 25 MG PO DAILY, (Reported) Magnesium Oxide (Magnesium) 250 Mg Tablet, 1 MG PO DAILY, (Reported) Ropinirole HCl (Ropinirole HCl) 2 Mg Tablet, 2 MG PO QHS, (Reported) Scheduled PRN Tramadol HCl (Tramadol HCl) 50 Mg Tablet, 50 MG PO TID PRN for PAIN, (Reported) Allergies Coded Allergies: latex (Verified Allergy, Intermediate, rash, 03/30/19) morphine (Verified Adverse Reaction, Intermediate, profound vomiting, 03/30/19) GME ATTESTATION GME ATTESTATION My faculty preceptor for this patient encounter was physically present during the encounter and was fully available. All aspects of the patient interview, examination, medical decision making process, and medical care plan development were reviewed and approved by the faculty preceptor. The faculty preceptor is aware and concurs with the plan as stated in the body of this note and will attest to such by his/her cosignature. ATTENDING NOTE I, Ayaka Espinal, have independently examined this patient and performed my own physical exam, as well as reviewed the documentation and edited where necessary with the resident. For medical students we have performed the physical exam together and discussed medical decision making and I have verified the history. I have discussed in detail with the resident / student the findings and plan of treatment as documented by the resident / student and edited their note. I agree with their findings and treatment plan and have edited their documentation. I will continue to follow the patient during this hospital stay. Time spent on discharge 20 minutes Walker Munoz DO Jul 31, 2021 10:55 AYAKA ESPINAL MD Jul 31, 2021 13:06
--- NOTE | 2021-07-31 19:34 | ECGEPIP ---
[facility] - ED Test Date: 2021-07-30 Pat Name: ASHISH HANNON Department: Room: [place] [address] Gender: Female House Decorator: ED : 1935 Requested By: ZARINA Blas PA-C Order Number: [id number] Reading MD: Ankur Guzman Measurements Intervals [place] Rate: 61 P: 21 LA: 182 QRS: -7 QRSD: 118 T: -6 QT: 450 QTc: 453 Interpretive Statements Normal sinus rhythm RIGHT BUNDLE BRANCH BLOCK SIMILAR TO 06/25/19 Electronically Signed on 07-31-2021 19:34:43 EDT by Ankur Guzman
[2021-08-01 10:36] LABS: DRVV SCREEN 40.8 SEC
[2021-08-01 10:41] LABS: PTT LUPUS TYPE ANTICOAG SCREEN 1.1 (0-1.2)
[2021-08-05 18:32] LABS: ANTI THROMBIN 3 ANTIGEN IMMUNO 118 % (72-124); ANTI THROMBIN 3 FUNCT ACTIVITY 98 % (75-135); CARDIOLIPIN IGA ANTIBODY <9 APL U/mL (0-11); CARDIOLIPIN IGG ANTIBODY <9 GPL U/mL (0-14); CARDIOLIPIN IGM ANTIBODY <9 MPL U/mL (0-12); PHOSPHOLIPIDS LEVEL 232 mg/dL (150-250); PROTEIN C FUNCTIONAL ACTIVITY 119 % (73-180); PROTEIN S FUNCTIONAL ACTIVITY 78 % (63-140)
== END 2021-07-31 12:37 | disposition home or self-care (01) ==
LOC: M ED 11:33 → M ED INP 11:34 → M MSPAV 21:38
PROVIDERS: ADMIT Internal Medicine; ATTEND Internal Medicine
DX: B34.8 Other viral infections of unspecified site (principal); R53.81 Other malaise; I74.8 Embolism and thrombosis of other arteries; I12.9 Hypertensive chronic kidney disease with stage 1 through stage 4 chronic kidney disease, or unspecified chronic kidney disease; M19.90 Unspecified osteoarthritis, unspecified site; N18.32 Chronic kidney disease, stage 3b; M48.00 Spinal stenosis, site unspecified; R06.02 Shortness of breath; R05.9 Cough, unspecified; R79.1 Abnormal coagulation profile; Z79.899 Other long term (current) drug therapy; Z79.82 Long term (current) use of aspirin; Z88.5 Allergy status to narcotic agent; Z91.040 Latex allergy status
CPT/HCPCS: 36415; 71045; 71275; 80053; 81240; 81241; 82550; 82553; 83615; 83735; 83880; 84311; 84439; 84443; 84484; 85025; 85027; 85300; 85301; 85303; 85305; 85379; 85610; 85730; 86140; 86147; 87631; 87798; 93005; 93041; 93970; 99285; G0378; J1644; Q9967

== ENCOUNTER → 2021-10-22 | Outpatient (CLI) | payer MEDICARE ==
[~2021-10-22] MED LIST changes: +ASPI-551 PO; +ATOR1TAB21 PO; +CELE1CAP7 PO; -PHEN15SP; +PHEN15SP5; +ROPI2TAB24; +ROPI2TAB3 PO
--- NOTE | 2021-10-22 11:25 | REP ---
INDICATION: LEFT WRIST PAIN COMPARISON: None. TECHNIQUE: AP, lateral, bilateral oblique views left wrist. FINDINGS: Generalized age-related osteopenia and gibbons carpal degenerative changes includes subtle periarticular sclerosis including minimal joint space narrowing at the radiocarpal joint line. The AP view demonstrates subtle irregularity along the lateral aspect at the triquetrum/pisiform which may represent chronic change versus very subtle fracture injury. IMPRESSION: Generalized gibbons carpal degenerative changes. Questionable injury just lateral to the triquetral/pisiform. <Electronically signed by Robert Rodrigez > 10/22/21 1128
[2021-10-22 17:52] LABS: URIC ACID 4.6 MG/DL (2.6-6.0)
== END ==
LOC: M WUC 10:23
PROVIDERS: ATTEND Nurse Practitioner Adult Health
DX: I12.9 Hypertensive chronic kidney disease with stage 1 through stage 4 chronic kidney disease, or unspecified chronic kidney disease (principal); D63.1 Anemia in chronic kidney disease; M18.9 Osteoarthritis of first carpometacarpal joint, unspecified

== ENCOUNTER → 2022-07-08 | Outpatient (REF) | payer MEDICARE ==
[~2022-07-08] MED LIST changes: -AMLO10CA22 PO; +AMLO10CA30 PO
[2022-07-08 19:32] LABS: BACTERIA, URINE LARGE AMOUNT; HYALINE CAST, URINE NONE SEEN /lpf (0-1); SQUAMOUS EPITHELIAL CELL URINE SMALL AMOUNT /hpf (SMALL AMT); TRANSITIONAL EPI CELLS, URINE SMALL AMOUNT /hpf; WBC, URINE TNTC /hpf (0-3)
== END ==
LOC: M LAB REF 16:22
PROVIDERS: ATTEND Nurse Practitioner Adult Health
DX: R31.9 Hematuria, unspecified (principal)

== ENCOUNTER → 2022-08-01 | Outpatient (REF) | payer MEDICARE | LOC: M WUC 17:08 | PROVIDERS: ATTEND Physician Assistant | DX: N39.0 Urinary tract infection, site not specified (principal) ==

== ENCOUNTER → 2022-11-14 | Outpatient (REF) | payer MEDICARE | LOC: M LAB REF 18:21 | PROVIDERS: ATTEND Physician Assistant | DX: R30.0 Dysuria (principal) ==

== ENCOUNTER → 2022-11-27 | Outpatient (CLI) | payer MEDICARE ==
[2022-11-27 12:50] LABS: BASO % 0.2 % (0.0-1.0); EOS # 0.1 10^3/uL (0.0-0.5); EOS % 0.8 % (0.0-3.0); HEMOGLOBIN 12.7 g/dl (12.0-15.5); LYMPH # 2.6 10^3/uL (1.5-5.0); LYMPH % 22.5 % (24.0-44.0); MEAN CORPUSCULAR HEMOGLOBIN 31.4 pg (27.0-33.0); MEAN CORPUSCULAR HGB CONC 32.6 g/dl (32.0-36.5); MEAN CORPUSCULAR VOLUME 96.3 fl (80.0-96.0); MONO % 15.1 % (2.0-8.0); NEUTROPHILS # 7.1 10^3/uL (1.5-8.5); NEUTROPHILS % 61.1 % (36.0-66.0); PLATELET COUNT, AUTOMATED 262 10^3/uL (150-450); RED BLOOD COUNT 4.05 10^6/uL (4.00-5.40); WHITE BLOOD COUNT 11.6 10^3/uL (4.0-10.0)
[2022-11-27 13:16] LABS: C REACTIVE PROTEIN QUANTITATIV 7.2 MG/DL (<1.0); RHEUMATOID FACTOR QUANT 7.7 IU/ML (<14)
[2022-11-27 13:26] LABS: MONO # 1.7 10^3/uL (0.0-0.8)
[2022-11-27 14:03] LABS: ERYTHROCYTE SEDIMENTATION RATE 54 mm/hr (0-30)
== END ==
LOC: M RAD 12:01
PROVIDERS: ATTEND Physician Assistant
DX: M19.071 Primary osteoarthritis, right ankle and foot (principal); M79.604 Pain in right leg

== ENCOUNTER → 2022-12-15 | Outpatient (REF) | payer MEDICARE | LOC: M LAB REF 16:48 | PROVIDERS: ATTEND Physician Assistant | DX: R30.0 Dysuria (principal) ==

== ENCOUNTER → 2023-01-04 | Outpatient (REF) | payer MEDICARE | LOC: M LAB REF 12:01 | PROVIDERS: ATTEND Physician Assistant | DX: R30.0 Dysuria (principal) ==

== ENCOUNTER → 2023-01-13 | Outpatient (CLI) | payer MEDICARE ==
[2023-01-13 16:06] LABS: BASO % 0.5 % (0.0-1.0); EOS # 0.2 10^3/uL (0.0-0.5); EOS % 2.1 % (0.0-3.0); HEMATOCRIT 41.5 % (36.0-47.0); HEMOGLOBIN 13.2 g/dl (12.0-15.5); LYMPH # 1.6 10^3/uL (1.5-5.0); LYMPH % 21.1 % (24.0-44.0); MEAN CORPUSCULAR HEMOGLOBIN 31.1 pg (27.0-33.0); MEAN CORPUSCULAR HGB CONC 31.8 g/dl (32.0-36.5); MEAN CORPUSCULAR VOLUME 97.9 fl (80.0-96.0); MONO # 1.1 10^3/uL (0.0-0.8); MONO % 13.6 % (2.0-8.0); NEUTROPHILS # 4.9 10^3/uL (1.5-8.5); NEUTROPHILS % 62.3 % (36.0-66.0); PLATELET COUNT, AUTOMATED 264 10^3/uL (150-450); RED BLOOD COUNT 4.24 10^6/uL (4.00-5.40); WHITE BLOOD COUNT 7.8 10^3/uL (4.0-10.0)
[2023-01-13 16:17] LABS: ERYTHROCYTE SEDIMENTATION RATE 30 mm/hr (0-30)
== END ==
LOC: M PLALAB 11:20
PROVIDERS: ATTEND Physician Assistant
DX: M79.671 Pain in right foot (principal)

== ENCOUNTER → 2023-01-19 | Outpatient (REF) | payer MEDICARE ==
[~2023-01-19] MED LIST changes: +CIPR250T3 PO
== END ==
LOC: M LAB REF 17:25
PROVIDERS: ATTEND Nurse Practitioner Adult Health
DX: R35.0 Frequency of micturition (principal)

== ENCOUNTER 2023-01-21 13:57 | Emergency (ER) | payer MEDICARE ==
[~2023-01-21] VITALS: Ht 147.3 cm; Wt 59.1 kg
[~2023-01-21 13:57] MED LIST changes: -CIPR250T3 PO
[2023-01-21 15:26] LABS: BASO # 0.1 10^3/uL (0.0-0.2); BASO % 0.7 % (0.0-1.0); EOS # 0.3 10^3/uL (0.0-0.5); EOS % 4.1 % (0.0-3.0); HEMATOCRIT 40.2 % (36.0-47.0); HEMOGLOBIN 12.9 g/dl (12.0-15.5); LYMPH # 2.3 10^3/uL (1.5-5.0); MEAN CORPUSCULAR HEMOGLOBIN 30.9 pg (27.0-33.0); MEAN CORPUSCULAR HGB CONC 32.1 g/dl (32.0-36.5); MEAN CORPUSCULAR VOLUME 96.4 fl (80.0-96.0); NEUTROPHILS # 3.7 10^3/uL (1.5-8.5); NEUTROPHILS % 50.1 % (36.0-66.0); PLATELET COUNT, AUTOMATED 260 10^3/uL (150-450); RED BLOOD COUNT 4.17 10^6/uL (4.00-5.40); WHITE BLOOD COUNT 7.3 10^3/uL (4.0-10.0)
[2023-01-21 16:02] LABS: ALBUMIN 3.5 G/DL (3.2-5.2); BILIRUBIN,DIRECT 0.2 MG/DL (<0.4); BILIRUBIN,TOTAL 0.7 MG/DL (0.3-1.2); CALCIUM LEVEL 9.2 MG/DL (8.3-10.6); CREATININE FOR GFR 1.12 MG/DL (0.55-1.30); GLOMERULAR FILTRATION RATE 48.8 (>32); POTASSIUM SERUM 4.2 MMOL/L (3.5-5.1); TOTAL PROTEIN 6.8 G/DL (5.7-8.2)
[2023-01-21] MEDS ORDERED: CIPR250T3 PO (16:28)
[2023-01-21 16:30] VITALS: BP 172/82
== END 2023-01-21 16:49 | disposition home or self-care (01) ==
LOC: M ED 13:57
DX: N39.0 Urinary tract infection, site not specified (principal); I10 Essential (primary) hypertension; K21.9 Gastro-esophageal reflux disease without esophagitis; Z88.5 Allergy status to narcotic agent; Z91.040 Latex allergy status; Z79.899 Other long term (current) drug therapy; Z79.82 Long term (current) use of aspirin

== ENCOUNTER → 2023-02-19 | Outpatient (REF) | payer MEDICARE ==
[~2023-02-19] MED LIST changes: +CIPR250T3 PO
== END ==
LOC: M LAB REF 12:36
PROVIDERS: ATTEND Nurse Practitioner Adult Health
DX: N39.0 Urinary tract infection, site not specified (principal)

== ENCOUNTER → 2023-03-05 | Outpatient (REF) | payer MEDICARE ==
[~2023-03-05] MED LIST changes: +DOXY-443 PO; +SENN-52 PO
== END ==
LOC: M LAB REF 22:16
PROVIDERS: ATTEND Physician Assistant
DX: R30.0 Dysuria (principal)

== ENCOUNTER 2023-03-09 13:37 | Emergency (ER) | payer MEDICARE ==
[~2023-03-09] VITALS: Ht 147.3 cm; Wt 57.7 kg
[~2023-03-09 13:37] MED LIST changes: -DOXY-443 PO; -SENN-52 PO
[2023-03-09 15:11] LABS: BASO % 0.4 % (0.0-1.0); EOS # 0.2 10^3/uL (0.0-0.5); EOS % 1.8 % (0.0-3.0); HEMATOCRIT 39.5 % (36.0-47.0); HEMOGLOBIN 13.1 g/dl (12.0-15.5); LYMPH # 1.6 10^3/uL (1.5-5.0); LYMPH % 15.3 % (24.0-44.0); MEAN CORPUSCULAR HEMOGLOBIN 31.8 pg (27.0-33.0); MEAN CORPUSCULAR HGB CONC 33.2 g/dl (32.0-36.5); MEAN CORPUSCULAR VOLUME 95.9 fl (80.0-96.0); MONO # 0.9 10^3/uL (0.0-0.8); MONO % 8.5 % (2.0-8.0); NEUTROPHILS # 7.8 10^3/uL (1.5-8.5); NEUTROPHILS % 73.7 % (36.0-66.0); PLATELET COUNT, AUTOMATED 251 10^3/uL (150-450); RED BLOOD COUNT 4.12 10^6/uL (4.00-5.40); WHITE BLOOD COUNT 10.5 10^3/uL (4.0-10.0)
[2023-03-09 15:41] LABS: ALBUMIN 3.7 G/DL (3.2-5.2); BILIRUBIN,DIRECT 0.2 MG/DL (<0.4); BILIRUBIN,TOTAL 0.5 MG/DL (0.3-1.2); CALCIUM LEVEL 9.4 MG/DL (8.3-10.6); CREATININE FOR GFR 1.11 MG/DL (0.55-1.30); GLOMERULAR FILTRATION RATE 49.3 (>32); TOTAL PROTEIN 6.8 G/DL (5.7-8.2)
[2023-03-09] MEDS ORDERED: LINEZOLID 600 MG in IV 1 EA IV ONE (16:20)
[2023-03-09] MEDS ORDERED: NS 1,000 ML IV ONE (16:20)
[2023-03-09] MEDS ORDERED: ISOVUE-370 76% 100ML VIAL As Ordered ONE (16:25)
[2023-03-09] MEDS ORDERED: DOXY-443 PO (18:07)
[2023-03-09] MEDS ORDERED: SENN-52 PO (18:07)
[2023-03-09 20:13] VITALS: BP 128/78
== END 2023-03-09 20:19 | disposition home or self-care (01) ==
LOC: M ED 13:37
DX: N39.0 Urinary tract infection, site not specified (principal); K59.00 Constipation, unspecified; I10 Essential (primary) hypertension; M48.00 Spinal stenosis, site unspecified; K21.9 Gastro-esophageal reflux disease without esophagitis; E78.5 Hyperlipidemia, unspecified; G25.81 Restless legs syndrome; H81.4 Vertigo of central origin; Z88.5 Allergy status to narcotic agent; Z91.040 Latex allergy status; Z79.899 Other long term (current) drug therapy; Z79.82 Long term (current) use of aspirin
CPT/HCPCS: 74177; 80048; 80076; 81001; 83605; 83690; 85025; 87086; 96365; 96366; 99284; J2020; Q9967